=== PATIENT | male | born 1970 | race Caucasian/White ===

== ENCOUNTER → 2019-10-20 | Emergency (ER) | payer MEDICAID, OTHER ==
[~2019-10-20] VITALS: Ht 185.4 cm; Wt 88.3 kg
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
== END | disposition left against medical advice (07) ==
LOC: ER 20:25
DX: S41.151A Open bite of right upper arm, initial encounter (principal); W54.0XXA Bitten by dog, initial encounter; Y93.89 Activity, other specified; Y92.89 Other specified places as the place of occurrence of the external cause; Y99.8 Other external cause status

== ENCOUNTER 2023-01-29 21:00 | Emergency (ER) | payer MEDICAID ==
[~2023-01-29] VITALS: Ht 185.4 cm; Wt 88.6 kg
[2023-01-29 21:16] VITALS: PULSE 120; RESP 20; TEMP 99.2; O2SAT 98
[2023-01-29] MEDS ORDERED: SODI30SP3 BOTHNARES (21:27)
[2023-01-29] MEDS ORDERED: DOXY-1 PO (21:27)
[2023-01-29] MEDS ORDERED: DOXYCYCLINE 100MG CAPSULE PO STA (21:28)
[2023-01-29] MEDS ORDERED: bacitracin 15gm ointment TP ONE (21:30)
== END 2023-01-29 22:11 | disposition home or self-care (01) ==
LOC: ER 21:01
DX: L03.211 Cellulitis of face (principal); R09.89 Other specified symptoms and signs involving the circulatory and respiratory systems; F41.9 Anxiety disorder, unspecified; Z88.0 Allergy status to penicillin; Z56.0 Unemployment, unspecified; Z79.899 Other long term (current) drug therapy
CPT/HCPCS: 99283

== ENCOUNTER 2023-03-24 18:27 | Emergency (ER) | payer MEDICAID ==
[~2023-03-24] VITALS: Ht 185.4 cm; Wt 90.9 kg
[~2023-03-24 18:27] MED LIST: SODI30SP3 BOTHNARES
[2023-03-24 18:48] VITALS: BP 107/73; PULSE 68; RESP 20; TEMP 98.3; O2SAT 94
== END 2023-03-25 03:07 | disposition left against medical advice (07) ==
LOC: ER 18:27
DX: R06.02 Shortness of breath (principal); Z53.21 Procedure and treatment not carried out due to patient leaving prior to being seen by health care provider
CPT/HCPCS: 99281

== ENCOUNTER 2023-09-05 11:21 | Emergency (ER) | payer MEDICAID ==
[~2023-09-05] VITALS: Ht 185.4 cm; Wt 93.2 kg
[2023-09-05 11:24] VITALS: BP 115/65; PULSE 79; TEMP 97.8; O2SAT 99
[2023-09-05] MEDS: HYDROcodone/acetaminophen 5mg/325mg tablet PO ONE (12:12)
[2023-09-05 13:05] VITALS: RESP 19
[2023-09-05] MEDS ORDERED: HYDR-3972 PO (13:07)
== END 2023-09-05 13:39 | disposition left against medical advice (07) ==
LOC: ER 11:21
DX: S22.31XA Fracture of one rib, right side, initial encounter for closed fracture (principal); Z88.0 Allergy status to penicillin; Z88.2 Allergy status to sulfonamides; W19.XXXA Unspecified fall, initial encounter; Y93.89 Activity, other specified; Y92.89 Other specified places as the place of occurrence of the external cause; Y99.8 Other external cause status
CPT/HCPCS: 70450; 73030; 99284; A4565

== ENCOUNTER 2025-03-23 16:20 | Emergency (ER) | payer MEDICAID ==
[~2025-03-23] VITALS: Ht 185.4 cm; Wt 82.8 kg
[2025-03-23 16:33] VITALS: BP 133/86; PULSE 70; RESP 18; O2SAT 95
--- NOTE | 2025-03-23 17:05 | RADIOLOGY REPORT ---
Indication: ANKLE PAIN Technique: DI ANKLE, COMPLETE(3VW MIN)ANKLECPLT Comparison: None FINDINGS/IMPRESSION: No radiographic evidence for acute fracture or dislocation. Anterior left ankle/ dorsal left foot soft tissue edema. Medial and lateral malleolar region soft tissue edema. 3
[2025-03-23] MEDS ORDERED: HYDR-3965 PO (18:18)
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
[2025-03-23 18:39] VITALS: TEMP 98.9
== END 2025-03-23 19:02 | disposition home or self-care (01) ==
LOC: ER 16:20
DX: M25.572 Pain in left ankle and joints of left foot (principal); F41.9 Anxiety disorder, unspecified; Z79.899 Other long term (current) drug therapy; Z88.0 Allergy status to penicillin; Z86.19 Personal history of other infectious and parasitic diseases; Z98.890 Other specified postprocedural states; Z56.0 Unemployment, unspecified
CPT/HCPCS: 29515; 73610; 99283